=== PATIENT | female | born 1995 | race African-American/Black ===

== ENCOUNTER 2024-05-25 18:10 | Emergency (ER) | payer BC, SELFPAY ==
[2024-05-25] MEDS ORDERED: ONDANSETRON 4 MG/2 ML VIAL ONE (18:12)
[2024-05-25] MEDS ORDERED: MORPHINE 4 MG/ML SYR ONE ×2 (18:13→19:34)
[2024-05-25] MEDS ORDERED: NA CHLORIDE 0.9% 1,000 ML ONE (18:13)
[2024-05-25] MEDS ORDERED: KETOROLAC 30 MG/ML INJ ONE (18:29)
[2024-05-25 18:54] LABS: Absolute Basophils 0.2 K/uL (0-0.5); Absolute Eosinophils 0.1 K/uL (0-0.5); Absolute Lymphocytes (CBC) 1.6 K/uL (0.7-4.9); Absolute Monocytes 0.6 K/uL (0.1-1.3); Absolute Neutrophil 15.8 K/uL (1.8-8.0); Basophils % 1.2 % (0-1.3); Eosinophils % 0.3 % (0-4.4); Lymphocytes % 8.6 % (15.3-44.8); MCHC 33.3 g/dL (32.0-36.0); MCV 87.1 fL (80-100); MPV 9.4 fL (7.6-11.3); Monocytes % 3.1 % (3.3-12.3); Neutrophils % 86.8 % (41.7-73.7); Nucleated Red Blood Cells % 0.1 % (0-0); Platelets 295 thou/uL (152-406); RBC Red Blood Cell Count 4.83 M/uL (3.86-4.86); Red Cell Distribution Width 12.8 % (12.1-15.2)
[2024-05-25 19:03] LABS: Albumin 3.8 g/dL (3.4-5.0); Albumin/Globulin Ratio 1.1 (1.1-1.8); Anion Gap 11.8 mEq/L (5.0-15.0); Bilirubin Total 0.5 mg/dL (0.2-1.0); Globulin 3.5 g/dL (2.3-3.5); Potassium 3.8 mEq/L (3.5-5.1); Protein, Total 7.3 g/dL (6.4-8.2)
[2024-05-25] MEDS ORDERED: PROMETHAZINE INJ 25 MG/ML AMP ONE (19:34)
--- NOTE | 2024-05-25 20:35 | RAD REPORT ---
EXAMINATION: CT ABDOMEN AND PELVIS WITH CONTRAST CLINICAL INDICATION: Abdominal pain TECHNIQUE: CT abdomen and pelvis was performed, after the administration of 100 cc Isovue-300.. Sagit everette and coronal reconstructions were obtained. One or more of the following dose reduction techniques were used: Automated exposure control, adjustment of the mA and kV according to patient si ze, and iterative reconstruction. Unless otherwise specified, incidental findings do not require dedicated imaging follow-up. [id number]. Oral contrast was not given which limits evaluation of bowel and appendix. 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 No evidence of diverticulitis. The wall of the entire colon appears mildly thickened. No adnexal mass.. Trace amount of ascites Small umbilical hernia : IMPRESSION: The wall of the entire colon appears mildly thickened probably a pancolitis
[2024-05-25 20:50] LABS: Platelet Estimate ADEQ; White Blood Cell Scan OK (OK)
[2024-05-25 20:51] LABS: Blood Morphology Comment NOT SEEN (NOT SEEN)
[2024-05-25] MEDS ORDERED: LORazepam 2 MG/ML VIAL ONE (21:39)
[2024-05-25 21:41] LABS: PT Prothrombin Time 13.1 SECONDS (9.4-12.5); PTT, Activated Partial Thromb 33.1 SECONDS (24.3-36.9); Protime INR 1.18
[2024-05-25] MEDS ORDERED: CIPROFLOXACIN 400mg IV 400 MG/200 ML BAG IV ONE (22:00)
[2024-05-25] MEDS ORDERED: METRONIDAZOLE 500mg IVPB 500 MG/100 ML BAG IV ONE (22:00)
[2024-05-25 23:40] LABS: Specific Gravity > 1.030 (1.005-1.030)
[2024-05-25 23:42] LABS: Specific Gravity > 1.030 (1.005-1.030); Sqamous Epithelial None Seen /HPF (None Seen); Urine Bacteria None Seen /HPF (<20); Urine Bilirubin NEGATIVE (Negative); Urine Blood Negative (Negative); Urine Clarity Clear (Clear); Urine Color Colorless (Yellow); Urine Culture Reflex Order NOT NEEDED; Urine Glucose NEGATIVE (Negative); Urine Ketones 2+ (Negative); Urine Microscopic Reflex YN ORDER UMIC; Urine Nitrite NEGATIVE (Negative); Urine Protein TRACE (Negative); Urine RBC <5 /HPF (None Seen); Urine Urobilinogen Normal (Normal); Urine WBC <5 /HPF (<5)
[2024-05-26 00:17] LABS: Barbiturates NEGATIVE (NEGATIVE); Benzodiazepines NEGATIVE (NEGATIVE); Cocaine NEGATIVE (NEGATIVE); METHAMPHETAM NEGATIVE (NEGATIVE); Methadone NEGATIVE (NEGATIVE); Opiates POSITIVE (NEGATIVE); Phencyclidine NEGATIVE (NEGATIVE); THC Cannibis POSITIVE (NEGATIVE)
--- NOTE | 2024-05-26 01:02 | EDPHYS ---
Physician Documentation [facility] Name: Maty Boucher Age: 28 yrs Sex: Female : 1995 Arrival Date: 05/25/2024 Time: 18:10 Bed 5 Private MD: ED Physician Maurice Gallego HPI: 05/25 23:28 This 28 yrs old Black Female presents to ER via EMS with complaints of Abdominal Pain, kb Nausea/Vomiting/Diarrhea. 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 No aggravating or alleviating factors. Denies fever. Historical: - Allergies: 18:30 No Known Allergies; kc6 - Home Meds: 18:30 None [Active]; kc6 - PMHx: 05/26 01:59 Depressive disorder; Anxiety; pseudoseizures; ha1 - PSHx: 05/25 18:30 None; kc6 - Immunization history:: Adult Immunizations unknown. - Infectious Disease History:: Denies. - Social history:: Smoking status: Patient denies any tobacco usage or history of. ROS: 19:47 Constitutional: As per HPI kb Exam: 19:47 Head/Face: Normocephalic, atraumatic. ENT: Moist Mucous membranes Cardiovascular: kb Regular rate Respiratory: Respirations even and unlabored. No increased work of breathing. Talking in full sentences Skin: Warm, dry with normal turgor. Normal color. MS/ Extremity: Pulses equal, no cyanosis. Neurovascular intact. Full, normal range of motion. Neuro: Awake and alert, GCS 15, oriented to person, place, time, and situation. 19:47 Constitutional: The patient appears alert, awake, in obvious pain, 19:47 Abdomen/GI: Inspection: abdomen appears normal, Bowel sounds: normal, Palpation: soft, in all quadrants, moderate abdominal tenderness, in the left upper quadrant and left lower quadrant, 22:13 ECG was reviewed by the Attending Physician. kb Vital Signs: 18:46 BP 145 / 104; Pulse 90; Resp 20 S; Pulse Ox 96% on R/A; kc6 19:35 BP 157 / 99; Pulse 99 MON; Resp 24 S; Temp 98.4; Pulse Ox 99% on R/A; cc6 21:17 BP 141 / 87; Pulse 78; Resp 18 S; Pulse Ox 98% on R/A; br2 21:50 BP 106 / 64; Pulse 80; Resp 19 S; Pulse Ox 100% on R/A; ha1 22:50 BP 93 / 57; Pulse 79; Resp 19 S; Pulse Ox 100% on R/A; ha1 23:50 BP 97 / 54; Pulse 80; Resp 18 S; Pulse Ox 97% on R/A; ha1 05/26 01:57 BP 111 / 79; Pulse 82; Resp 18 S; Pulse Ox 98% on R/A; br2 02:51 BP 108 / 66; Pulse 83; Resp 18 S; Pulse Ox 98% on R/A; br2 19:35 Sinus Rhythm cc6 MDM: 05/25 18:23 Medical Screening Exam initiated marta 21:45 ED course: WBC elevated and pancolitis on CT scan. Lactate and blood cultures added. kb While lactate pending, pt had a seizure. Pt with reported history of anxiety and depression, no reported history of seizures. CT head ordered. Pt was given ativan, which resolved seizure activity. . 23:29 Differential diagnosis: diverticulitis, non-specific abd pain, Pyelonephritis, urinary kb tract infection, colitis. Data reviewed: vital signs, nurses notes. Consideration of Admission/Observation Patient was admitted/placed on observation. Escalation of care including admission/observation considered. Historians other than the Patient: EMS: [facility]. Counseling: I had a detailed discussion with the patient and/or guardian regarding the historical points, exam findings, and any diagnostic results supporting the discharge/admit diagnosis, lab results, radiology results, the need for further work-up and treatment in the hospital. 05/26 01:00 Management of patient was discussed with the following: Primary Care Provider: Dr Jonathan lozano accepts pt for admission. 01:33 Differential diagnosis: Nonspecific abd pain, gastritis, cholecystitis, pancreatitis, sp4 appendicitis, diverticulitis, viral gastroenteritis, gastroenteritis. ED course: EXAMINATION: CTABDOMEN AND PELVIS WITH CONTRAST CLINICAL INDICATION: Abdominal pain TECHNIQUE: CT abdomen and pelvis was performed, after the administration of 100 cc Isovue-300.. Sagittal and coronal reconstructions were obtained. One or more of the following dose reduction techniques were used: Automated exposure control, adjustment of the mA and kV according to patient size, and iterative reconstruction. Unless otherwise specified, incidental findings do not require dedicated imaging follow-up. [id number]. Oral contrast was not given which limits evaluation of bowel and appendix. 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 No evidence of diverticulitis. The wall of the entire colon appears mildly thickened. No adnexal mass.. Trace amount of ascites Small umbilical hernia : IMPRESSION: The wall of the entire colon appears mildly thickened probably a pancolitis . ED course: PROCEDURE: CT Head Without Intravenous Contrast CLINICAL INDICATION: The patient is 28 years old and is Female; Seizure. TECHNIQUE: Axial computed tomography images of the head/brain without intravenous contrast. Sagittal and coronal reformatted images were created and reviewed. This CT exam was performed using one or more of the following dose reduction techniques: automated exposure control, adjustment of the mA and/or kV according to patient size, and/or use of iterative reconstruction technique. COMPARISON: None. FINDINGS: BRAIN: Subarachnoid hemorrhage demonstrated within the superior right frontoparietal 3lobe sulci. No additional sites of intracranial hemorrhage identified. No focal hooper-white matter differentiation abnormality. No transtentorial herniation. MIDLINE SHIFT: No midline shift. VENTRICLES: Unremarkable No ventriculomegaly. BONES/JOINTS: No fracture of the calvarium or visualized facial bones. SOFT TISSUES: Unremarkable SINUSES: No masses, bony erosion or evidence of acute sinusitis. MASTOID AIR CELLS: Unremarkable as visualized. No mastoid effusion. IMPRESSION: 1. Subarachnoid hemorrhage demonstrated within the superior right frontoparietal lobe sulci. No additional sites of intracranial hemorrhage identified. Given location and lack of additional sites, traumatic etiology is suspected. 2. No other acute intracranial abnormality. Electronically signed by: Johann Boogie MD 05/26/2024 01:20 AM. 01:46 ED course: IMPRESSION: 1. Subarachnoid hemorrhage demonstrated within the superior sp4 right frontoparietal lobe sulci. No additional sites of intracranial hemorrhage identified. Given location and lack of additional sites, traumatic etiology is suspected. 2. No other acute intracranial abnormality. Electronically signed by: Johann Boogie MD 05/26/2024 01:20 AM. 01:51 ED course: CT - CT has revealed small amount of subarachnoid bleed little right sp4 frontotemporal area patient stable for transfer to [facility] to neuro ICU for further evaluation and management.. 05/25 18:24 Order name: CBC with Diff; Complete Time: 20:51 kb 05/25 18:24 Order name: CMP; Complete Time: 19:15 kb 05/25 18:24 Order name: Lipase; Complete Time: 19:15 kb 05/25 18:24 Order name: Test, Urine; Complete Time: 23:49 kb 05/25 18:24 Order name: Urinalysis w/ reflexes; Complete Time: 23:49 kb 05/25 18:24 Order name: Test, Serum; Complete Time: 19:15 kb 05/25 20:44 Order name: Blood Culture Adult (2) kb 05/25 20:44 Order name: Lactate w/ 2H reflex if indic.; Complete Time: 22:48 kb 05/25 20:44 Order name: Protime (+inr); Complete Time: 22:48 kb 05/25 20:44 Order name: Ptt, Activated kb 05/25 20:51 Order name: CBC Smear Scan; Complete Time: 20:51 EDMS 05/25 22:53 Order name: UDS; Complete Time: 00:17 kb 05/25 19:03 Order name: CT Abd/Pelvis - IV Contrast Only; Complete Time: 20:42 kb 05/25 21:41 Order name: CT Head Brain wo Cont kb 05/25 20:44 Order name: EKG; Complete Time: 20:44 kb 05/25 18:24 Order name: IV Saline Lock; Complete Time: 18:24 kb 05/25 18:24 Order name: Labs collected and sent; Complete Time: 18:24 kb 05/25 20:44 Order name: EKG - Nurse/Tech; Complete Time: 22:08 kb 05/25 20:44 Order name: O2 Per Protocol; Complete Time: 21:16 kb 05/25 20:44 Order name: O2 Sat Monitoring; Complete Time: 21:16 kb 05/26 01:31 Order name: NPO; Complete Time: 02:21 sp4 EC/17 22:13 Rate is 101 beats/min. Rhythm is regular. QRS [place] is Normal. TN interval is normal at kb 152 msec. QRS interval is normal at 78 msec. QT interval is normal at 464 msec. Administered Medications: 18:24 Drug: NS 0.9% IV 1000 ml IV at 1 bolus Per protocol; to be given as a bolus over 60 kc6 minutes Route: IV; Rate: 1 bolus; Site: left antecubital; 19:45 Follow up: Response: No adverse reaction; IV Status: Completed infusion; IV Intake: br2 1000ml 18:25 Drug: Ondansetron IVP 4 mg IVP once; over 2 minutes Route: IVP; Site: left antecubital; kc6 18:44 Follow up: Response: No adverse reaction kc6 18:25 Drug: morphine IVP or IV 4 mg IVP once over 4 mins Route: IVP; Infused Over: 4 mins; kc6 Site: left antecubital; 18:44 Follow up: Response: No adverse reaction; Pain is unchanged, physician notified kc6 18:35 Drug: Ketorolac IVP 15 mg IVP once Route: IVP; Site: left antecubital; kc6 19:00 Follow up: Response: No adverse reaction; Pain is unchanged, physician notified kc6 19:45 Drug: Promethazine IVP 12.5 mg IVP once Route: IVP; Site: left antecubital; br2 20:45 Follow up: Response: No adverse reaction; Pain is decreased br2 19:46 Drug: morphine IVP or IV 4 mg IVP once over 4 mins Route: IVP; Infused Over: 4 mins; br2 Site: left antecubital; 20:45 Follow up: Response: No adverse reaction; Pain is decreased br2 21:40 Drug: Ativan IVP 2 mg IVP once Route: IVP; Site: left antecubital; ha1 22:40 Follow up: Response: No adverse reaction br2 22:08 Drug: metroNIDAZOLE IVPB 500 mg 100 ml IVPB at 200 ml/hr once over 30 mins Volume: 100 ha1 ml; Route: IVPB; Rate: 200 ml/hr; Infused Over: 30 mins; Site: left antecubital; 22:40 Follow up: Response: No adverse reaction; IV Status: Completed infusion ha1 23:31 Follow up: Response: No adverse reaction; IV Status: Completed infusion; IV Intake: br2 100ml 23:32 Drug: Ciprofloxacin IVPB 400 mg 200 ml IVPB once over 60 mins Volume: 200 ml; Route: br2 IVPB; Infused Over: 60 mins; Site: left antecubital; 05/26 00:50 Follow up: Response: No adverse reaction; IV Status: Completed infusion; IV Intake: ha1 200ml 02:06 Follow up: Response: No adverse reaction aa10 01:50 Drug: Keppra IV 1000 mg IV at calculated rate once Route: IV; Rate: calculated rate; br2 Site: left antecubital; 02:05 Follow up: Response: No adverse reaction aa10 02:22 Follow up: Response: No adverse reaction; IV Status: Completed infusion; IV Intake: ha1 100ml 01:50 Drug: NS 0.9% IV 1000 ml IV at 125 ml/hr Per protocol; to be given as a bolus over 60 br2 minutes Route: IV; Rate: 125 ml/hr; Site: left antecubital; 02:05 Follow up: Response: No adverse reaction; Rate change bolus; IV Intake: 1000ml aa10 02:23 Follow up: Response: No adverse reaction; IV Status: Infusion continued upon transfer ha1 02:53 Drug: Midazolam IVP or IV 2 mg IVP once Route: IVP; Site: left antecubital; ha1 02:59 Follow up: Response: No adverse reaction; RASS: Drowsy (-1) ha1 Disposition: 01:49 Co-signature as Attending Physician, Maurice Gallego MD I agree with the assessment sp4 and plan of care. I reviewed the patient's care provided by Advanced Practice Provider \T\ agree w/ the diagnosis \T\ care plan. I personally saw the pt \T\ performed a substantive portion of the visit, incldng all aspects of the (History/Exam/Medical Decision Making). Disposition Summary: 05/26/24 01:51 Transfer Ordered Notes: Transfer Location: [facility]-System sp4 Reason: Higher level of care sp4 Condition: Stable(05/26/24 01:51) sp4 Problem: new(05/26/24 01:51) sp4 Symptoms: have improved(05/26/24 01:51) sp4 Accepting Physician: Reilly [facility] - Accepting NSG(05/26/24 03:01) ha1 Diagnosis - Nontraumatic subarachnoid hemorrhage, unspecified sp4 - Acute pancolitis, acute subarachnoid hemorrhage right frontotemporal area sp4 Forms: - Medication Reconciliation Form sp4 - SBAR form sp4 Critical care time excluding procedures: 01:49 Critical care time: Bedside Care: 36 minutes, Consultation: 12 minutes, Family sp4 Intervention: 12 minutes. Total time: 60 minutes Signatures: Dispatcher [employer] EDMS Maria Eugenia Rowell, FLANGE TURNER-C FLANGE TURNER-Ckb Jenni Murray, RN RN ha1 Paula Hampton RN RN kc6 Maurice Gallego MD MD sp4 Eri Garcia RN RN br2 Jonah Dean RN aa10 Corrections: (The following items were deleted from the chart) 05/25 19:30 18:24 Abdomen Pelvis W Con+CT.RAD.BRZ ordered. EDMS EDMS 20:44 20:44 BLOOD CULTURE*+BA.LAB.BRZ ordered. EDMS EDMS 20:44 20:44 LACTATE+C.LAB.BRZ ordered. EDMS EDMS 20:44 20:44 PROTIME (+INR)+COAG.LAB.BRZ ordered. EDMS EDMS 20:44 20:44 PTT, ACTIVATED+COAG.LAB.BRZ ordered. EDMS EDMS 21:41 21:41 Head Brain Wo Cont+CT.RAD.BRZ ordered. EDMS EDMS 05/26 01:32 01:01 Observation kb rv1 01:32 01:01 Musa Castillo kb rv1 01:32 01:01 Telemetry/MedSurg (observation) kb rv1 01:32 01:01 Stable kb rv1 01:32 01:01 new kb rv1 01:32 01:01 are unchanged kb rv1 01:32 01:01 Standard kb rv1 01:32 01:01 kb rv1 01:32 01:01 Pancolitis kb rv1 01:32 01:01 Elevated white blood cell count kb rv1 02:03 05/25 18:30 PMHx: None; kc6 ha1 05/26 03:01 01:51 Reilly [facility] - Accepting NSG sp4 ha1
--- NOTE | 2024-05-26 01:02 | ER ---
Nurse's Notes [facility] Name: Maty Boucher Age: 28 yrs Sex: Female : 1995 Arrival Date: 05/25/2024 Time: 18:10 Bed 5 Private MD: Diagnosis: Nontraumatic subarachnoid hemorrhage, unspecified;Acute pancolitis, acute subarachnoid hemorrhage right frontotemporal area Presentation: 05/25 18:29 Chief complaint: EMS states: sudden onset n/v/d and diffuse abd pain that the pt rates kc6 10/10. upon EMS arrival pt appears to be moaning and yelling on the stretcher. pt states her last meal was at 1300. Coronavirus screen: At this time, the client does not indicate any symptoms associated with coronavirus-19. Ebola Screen: No symptoms or risks identified at this time. Risk Assessment: Do you want to hurt yourself or someone else? Patient reports no desire to harm self or others. Onset of symptoms was May 25, 2024. 18:29 Method Of Arrival: EMS: [facility] kc6 18:29 Acuity: KARRIE 2 kc6 18:29 Initial Sepsis Screen: Does the patient meet any 2 criteria? No. Patient's initial [facility] sepsis screen is negative. Does the patient have a suspected source of infection? No. Patient's initial sepsis screen is negative. Historical: - Allergies: 18:30 No Known Allergies; kc6 - Home Meds: 18:30 None [Active]; kc6 - PMHx: 05/26 01:59 Depressive disorder; Anxiety; pseudoseizures; ha1 - PSHx: 05/25 18:30 None; kc6 - Immunization history:: Adult Immunizations unknown. - Infectious Disease History:: Denies. - Social history:: Smoking status: Patient denies any tobacco usage or history of. Screenin:30 [facility] ED Fall Risk Assessment (Adult) History of falling in the last 3 months, kc6 including since admission No falls in past 3 months (0 pts) Confusion or Disorientation No (0 pts) Intoxicated or Sedated No (0 pts) Impaired Gait No (0 pts) Mobility Assist Device Used No (0 pt) Altered Elimination No (0 pt) Score/Fall Risk Level 0 - 2 = Low Risk Oriented to surroundings. Abuse screen: Denies threats or abuse. Denies injuries from another. Nutritional screening: No deficits noted. Tuberculosis screening: No symptoms or risk factors identified. Assessment: 18:29 General: Appears distressed, uncomfortable, well groomed, well developed, Behavior is kc6 cooperative, crying. Pain: Complains of pain in abdomen diffusely Pain does not radiate. Pain currently is 10 out of 10 on a pain scale. Quality of pain is described as sharp, stabbing, Pain began suddenly, Is continuous, Noted to be crying, grimacing, guarding, moaning, resistant to movement. Neuro: Level of Consciousness is awake, alert, obeys commands, Oriented to person, place, time, situation, Appropriate for age. Cardiovascular: Capillary refill < 3 seconds. Respiratory: Airway is patent Trachea midline Respiratory effort is even, unlabored, Respiratory pattern is regular, symmetrical. GI: Abdomen is flat, non-distended, Abdomen is tender to palpation X 4 quads. Reports lower abdominal pain, upper abdominal pain, diarrhea, nausea, vomiting. : No signs and/or symptoms were reported regarding the genitourinary system. EENT: No signs and/or symptoms were reported regarding the EENT system. Derm: No signs and/or symptoms reported regarding the dermatologic system. Skin is intact, is healthy with good turgor, Skin is pink, warm \T\ dry. Musculoskeletal: No signs and/or symptoms reported regarding the musculoskeletal system. Circulation, motion, and sensation intact. Capillary refill < 3 seconds, Range of motion: intact in all extremities. 19:20 Reassessment: Patient and/or family updated on plan of care and expected duration. Pain br2 level reassessed. Patient is alert, oriented x 3, equal unlabored respirations, skin warm/dry/pink. Reassessment: ARRIVED TO PT'S ROOM WITH HER COVERED IN DIARRHEA AND URINE. PT STATES SHE IS IN SO MUCH PAIN SHE CAN'T CLEAN HERSELF. PT WAS ABLE TO REPOSITION HERSELF WHILE MYSELF AND LEE ROMEO WERE CLEANING HER BUT SHE CONTINUED TO SCREAM. General: Appears distressed, uncomfortable, Behavior is cooperative, crying. GI: Reports lower abdominal pain, upper abdominal pain, diarrhea, nausea, vomiting, since 1-2 hrs canal [employer]. 21:17 Reassessment: Patient and/or family updated on plan of care and expected duration. Pain br2 level reassessed. Patient is alert, oriented x 3, equal unlabored respirations, skin warm/dry/pink. RESTING IN BED WIITH EYES CLOSED Patient states feeling better. Patient states symptoms have improved. 21:38 General: Appears uncomfortable. General: Dr. Gallego at bedside. Seizure precaution ha1 in place and suction at bedside . Neuro: Seizure activity Type of seizure: tonic-clonic seizure. Seizure lasted approximately 0.5 minutes. 21:38 Reassessment:. Respiratory: Airway is patent Respiratory effort is even. ha1 21:50 Reassessment: EYES CLOSED. Respiratory: Airway is patent Respiratory effort is even, ha1 unlabored, Respiratory pattern is regular, symmetrical. 21:50 General: Appears comfortable. ha1 22:50 Reassessment:. Reassessment: EYES CLOSED. Respiratory: Airway is patent Respiratory ha1 effort is even, unlabored, Respiratory pattern is regular, symmetrical. 23:50 Reassessment: EYES CLOSED. Respiratory: Airway is patent Respiratory effort is even, ha1 unlabored, Respiratory pattern is regular, symmetrical. 18 00:50 Reassessment: EYES CLOSED. Respiratory: Airway is patent Respiratory effort is even, ha1 unlabored, Respiratory pattern is regular, symmetrical. 01:51 Reassessment: Patient and/or family updated on plan of care and expected duration. Pain br2 level reassessed. Patient is alert, oriented x 3, equal unlabored respirations, skin warm/dry/pink. PT IS AWAKE AND ALERT. PT STATES SHE HAS A HX OF PSEUDOSEIZURES DUE TO STRESS AND ANXIETY Patient states feeling better. Patient states symptoms have improved. 02:19 Reassessment: NURSE TO NURSE REPORT GIVEN TO LEE SUGGS. ha1 02:59 Respiratory: Airway is patent Respiratory effort is even, unlabored, Respiratory ha1 pattern is regular, symmetrical. Vital Signs: 05/25 18:46 BP 145 / 104; Pulse 90; Resp 20 S; Pulse Ox 96% on R/A; kc6 19:35 BP 157 / 99; Pulse 99 MON; Resp 24 S; Temp 98.4; Pulse Ox 99% on R/A; cc6 21:17 BP 141 / 87; Pulse 78; Resp 18 S; Pulse Ox 98% on R/A; br2 21:50 BP 106 / 64; Pulse 80; Resp 19 S; Pulse Ox 100% on R/A; ha1 22:50 BP 93 / 57; Pulse 79; Resp 19 S; Pulse Ox 100% on R/A; ha1 23:50 BP 97 / 54; Pulse 80; Resp 18 S; Pulse Ox 97% on R/A; ha1 05/26 01:57 BP 111 / 79; Pulse 82; Resp 18 S; Pulse Ox 98% on R/A; br2 02:51 BP 108 / 66; Pulse 83; Resp 18 S; Pulse Ox 98% on R/A; br2 19:35 Sinus Rhythm cc6 ED Course: 05/25 18:10 Patient arrived in ED. kc6 18:22 Maria Eugenia Rowell FNP-C is PHCP. kb 18:22 James Martinez MD is Attending Physician. kb 18:25 Inserted saline lock: 22 gauge in left antecubital area, using aseptic technique. Blood kc6 collected. Flushed with 10 mL NS. 18:25 Patient maintains SpO2 saturation greater than 95% on room air. kc6 18:30 Triage completed. kc6 18:30 Arm band placed on. kc6 18:30 Patient has correct armband on for positive identification. Bed in low position. Call kc6 light in reach. Side rails up X2. Pulse ox on. NIBP on. Door closed. Noise minimized. Lights dimmed. Warm blanket given. Pillow given. 18:43 Paula Hampton, RN is Primary Nurse. kc6 18:44 Test, Serum Sent. kc6 18:44 CBC with Diff Sent. kc6 18:44 CMP Sent. kc6 18:44 Lipase Sent. kc6 19:00 Report given to LEE Arteaga \T\ LEE Hwang. kc6 20:06 CT Abd/Pelvis - IV Contrast Only In Process Unspecified. EDMS 21:16 Blood Culture Adult (2) Sent. br2 21:16 Lactate w/ 2H reflex if indic. Sent. br2 21:16 Protime (+inr) Sent. br2 21:16 Ptt, Activated Sent. br2 23:03 CT Head Brain wo Cont In Process Unspecified. EDMS 23:43 Straight cath inserted, using sterile technique, 14 Fr. Specimen obtained. Patient br2 tolerated well. 05/26 01:01 Musa Castillo MD is Hospitalizing Provider. kb 01:06 Attending Physician role handed off by James Martinez MD rv1 01:06 Maurice Gallego MD is Attending Physician. rv1 02:53 No provider procedures requiring assistance completed. Patient transferred, IV remains ha1 in place. 02:58 Provided Education on: NEED FOR TRANSFER . ha1 Administered Medications: 05/25 18:24 Drug: NS 0.9% IV 1000 ml IV at 1 bolus Per protocol; to be given as a bolus over 60 kc6 minutes Route: IV; Rate: 1 bolus; Site: left antecubital; 19:45 Follow up: Response: No adverse reaction; IV Status: Completed infusion; IV Intake: br2 1000ml 18:25 Drug: Ondansetron IVP 4 mg IVP once; over 2 minutes Route: IVP; Site: left antecubital; kc6 18:44 Follow up: Response: No adverse reaction kc6 18:25 Drug: morphine IVP or IV 4 mg IVP once over 4 mins Route: IVP; Infused Over: 4 mins; kc6 Site: left antecubital; 18:44 Follow up: Response: No adverse reaction; Pain is unchanged, physician notified kc6 18:35 Drug: Ketorolac IVP 15 mg IVP once Route: IVP; Site: left antecubital; kc6 19:00 Follow up: Response: No adverse reaction; Pain is unchanged, physician notified kc6 19:45 Drug: Promethazine IVP 12.5 mg IVP once Route: IVP; Site: left antecubital; br2 20:45 Follow up: Response: No adverse reaction; Pain is decreased br2 19:46 Drug: morphine IVP or IV 4 mg IVP once over 4 mins Route: IVP; Infused Over: 4 mins; br2 Site: left antecubital; 20:45 Follow up: Response: No adverse reaction; Pain is decreased br2 21:40 Drug: Ativan IVP 2 mg IVP once Route: IVP; Site: left antecubital; ha1 22:40 Follow up: Response: No adverse reaction br2 22:08 Drug: metroNIDAZOLE IVPB 500 mg 100 ml IVPB at 200 ml/hr once over 30 mins Volume: 100 ha1 ml; Route: IVPB; Rate: 200 ml/hr; Infused Over: 30 mins; Site: left antecubital; 22:40 Follow up: Response: No adverse reaction; IV Status: Completed infusion ha1 23:31 Follow up: Response: No adverse reaction; IV Status: Completed infusion; IV Intake: br2 100ml 23:32 Drug: Ciprofloxacin IVPB 400 mg 200 ml IVPB once over 60 mins Volume: 200 ml; Route: br2 IVPB; Infused Over: 60 mins; Site: left antecubital; 05/26 00:50 Follow up: Response: No adverse reaction; IV Status: Completed infusion; IV Intake: ha1 200ml 02:06 Follow up: Response: No adverse reaction aa10 01:50 Drug: Keppra IV 1000 mg IV at calculated rate once Route: IV; Rate: calculated rate; br2 Site: left antecubital; 02:05 Follow up: Response: No adverse reaction aa10 02:22 Follow up: Response: No adverse reaction; IV Status: Completed infusion; IV Intake: ha1 100ml 01:50 Drug: NS 0.9% IV 1000 ml IV at 125 ml/hr Per protocol; to be given as a bolus over 60 br2 minutes Route: IV; Rate: 125 ml/hr; Site: left antecubital; 02:05 Follow up: Response: No adverse reaction; Rate change bolus; IV Intake: 1000ml aa10 02:23 Follow up: Response: No adverse reaction; IV Status: Infusion continued upon transfer ha1 02:53 Drug: Midazolam IVP or IV 2 mg IVP once Route: IVP; Site: left antecubital; ha1 02:59 Follow up: Response: No adverse reaction; RASS: Drowsy (-1) ha1 Medication: 02:20 VIS not applicable for this client. ha1 Intake: 05/25 19:45 IV: 1000ml; Total: 1000ml. br2 23:31 IV: 100ml; Total: 1100ml. br2 05/26 00:50 IV: 200ml; Total: 1300ml. ha1 02:05 IV: 1000ml; Total: 2300ml. aa10 02:22 IV: 100ml; Total: 2400ml. ha1 Outcome: 01:01 Decision to Hospitalize by Provider. kb 01:51 ER care complete, transfer ordered by spWenceslao 02:54 Transferred by ground EMS to [facility], Transfer form ha1 completed. X-rays sent w/ patient. Note: TRANSFERRED BY [facility] 02:54 Condition: stable 02:54 Instructed on the need for transfer, Demonstrated understanding of instructions, 03:01 Patient left the ED. ha1 Signatures: Dispatcher [employer] EDMaria Eugenia Barton, BUFFER MACHINE-C BUFFER MACHINE-CkJenni Aguiar RN RN ha1 Paula Hampton RN RN kc6 Barbara Mustafa rv1 Maurice Gallego MD MD sp4 Eri Garcia RN RN br2 Liane Brannon cc6 Jonah Dean RN RN aa10 Corrections: (The following items were deleted from the chart) 05/25 19:21 18:29 Chief complaint: EMS states: sudden onset n/v/d and diffuse abd pain 03/18 kc6 kc6 05/26 02:03 05/25 18:30 PMHx: None; kc6 ha1
[2024-05-26] MEDS ORDERED: LEVETIRACETAM 500 MG/5 ML VIAL IV ONE (01:36)
[2024-05-26] MEDS ORDERED: NA CHLORIDE 0.9% 1,000 ML ONE (01:37)
[2024-05-26] MEDS ORDERED: NA CHLORIDE 0.9% 100 ML ONE (01:37)
--- NOTE | 2024-05-26 02:28 | RAD REPORT ---
ADDENDUM #1 Addendum: Dr. Boogie discussed these critical findings with Dr. Maurice Gallego via telephone at approximately 02:25 hours EST on 05/26/2024. Electronically signed by: Johann Boogie MD 05/26/2024 02:53 AM [facility] End of Addendum PROCEDURE: CT Head Without Intravenous Contrast CLINICAL INDICATION: The patient is 28 years old and is Female; Seizure. TECHNIQUE: Axial computed tomography images of the head/brain without intravenous contrast. Sagittal and coron al reformatted images were created and reviewed. This CT exam was performed using one or more of the following dose reduction techniques: automated exposure control, adjustment of the mA and/or kV according to patient size, and/or use of iterative reconstruction technique. COMPARISON: None. FINDINGS: BRAIN: Subarachnoid hemorrhage demonstrated within the superior right frontoparietal 3lobe sulci. No additional sites of intracranial hemorrhage identified. No focal hooper-white matter differentiation abnormality. No transtentorial herniation. MIDLINE SHIFT: No midline shift. VENTRICLES: Unremarkable No ventriculomegaly. BONES/JOINTS: No fracture of the calvarium or visualized facial bones. SOFT TISSUES: Unremarkable SINUSES: No masses, bony erosion or evidence of acute sinusitis. MASTOID AIR CELLS: Unremarkable as visualized. No mastoid effusion. IMPRESSION: 1. Subarachnoid hemorrhage demonstrated within the superior right frontoparietal 3lobe sulci. No ad ditional sites of intracranial hemorrhage identified. Given location and lack of additional sites, traumatic etiology is suspected. 2. No other acute intracranial abnormality. Electronically signed by: Johann Boogie MD 05/26/2024 01:20 AM [facility] Due to temporary technical issues with the PACS/Eligible reporting system, reports are being margaret d by the in-house radiologist without review as a courtesy to ensure prompt reporting the interpreting radiologist is fully responsible for the content of the report. Transcribed Date/Time: 05/26/2024 3:10 AM
[2024-05-26] MEDS ORDERED: MIDAZOLAM HCL 2 MG/2 ML INJ ONE (02:48)
[2024-05-26 03:24] VITALS: TEMP 98.4
[2024-05-26 03:33] VITALS: O2SAT 98
[2024-05-26 03:35] VITALS: BP 108/66
--- NOTE | 2024-05-27 11:29 | EKG ---
Test Date: 2024-05-25 Test Time: 22:01:10 Movable Bulkhead Installer: TOMER MEASUREMENT RESULTS: Intervals: Rate: 101 ID: [id number] QRSD: 78 QT: 358 QTc: 464 [place]: P: 68 ID: [id number] QRS: 42 T: 27 INTERPRETIVE STATEMENTS: Sinus tachycardia Otherwise normal ECG No previous ECG available for comparison Electronically Signed On 05-27-24 11:27:47 SECURITY INVESTIGATOR by Ac Frankel
== END 2024-05-26 03:01 | disposition short-term general hospital (02) ==
LOC: ER 18:10
DX: I60.9 Nontraumatic subarachnoid hemorrhage, unspecified (principal); I69.014 Frontal lobe and executive function deficit following nontraumatic subarachnoid hemorrhage; I69.098 Other sequelae following nontraumatic subarachnoid hemorrhage; K52.9 Noninfective gastroenteritis and colitis, unspecified
CPT/HCPCS: 36415; 51702; 70450; 74177; 80053; 80307; 81001; 81025; 83605; 83690; 84703; 85025; 85610; 85730; 87040; 93005; 96361; 96365; 96367; 96375; 99285; J0744; J1953; J2250; J2405; J2550; J7030; Q9967